=== PATIENT | female | born 1960 | race Caucasian/White ===

== ENCOUNTER 2021-05-07 17:11 | Emergency (ER) | payer OTHER ==
[2021-05-07 17:36] VITALS: TEMP 97.8; BMI 36.0
[2021-05-07] MEDS ORDERED: morphine CARPU-JECT 4 MG/1 ML DISP.SYRIN IVPUSH ONE (18:57)
[2021-05-07] MEDS ORDERED: morphine SULFATE 4 MG/ML VIAL ONE (19:23)
[2021-05-07 19:46] LABS: BASO % 0.5 % (0-2.0); EOS % 0.7 % (0-4.5); HEMATOCRIT 37.5 % (32.4-45.2); HEMOGLOBIN 12.6 GM/dL (10.7-15.3); LYMPH % 24.9 % (8-40); MCH 29.9 pg (25.7-33.7); MCHC 33.7 g/dl (32.0-36.0); MEAN CELL VOLUME 88.7 fl (80-96); MEAN PLT VOLUME 8.2 fl (7.5-11.1); MONO % 9.1 % (3.8-10.2); NEUT % 64.8 % (42.8-82.8); PLATELET COUNT 343 10^3/uL (134-434); RBC 4.23 M/mm3 (3.60-5.2); RDW 13.7 % (11.6-15.6); WHITE BLOOD COUNT 10.2 K/mm3 (4.0-10.0)
[2021-05-07 20:05] LABS: ALBUMIN 3.5 g/dl (3.4-5.0); CALCIUM 9.1 mg/dL (8.5-10.1)
[2021-05-07 20:06] LABS: BLOOD UREA NITROGEN 17.2 mg/dL (7-18)
[2021-05-07 20:08] LABS: CREATININE 0.9 mg/dL (0.55-1.3)
[2021-05-07 20:10] LABS: BILIRUBIN,TOTAL 1.4 mg/dL (0.2-1)
[2021-05-07 20:32] LABS: EPI CELLS 18 /uL (0-25.1); HYALINE CASTS 0 /uL (0-3.1); URINE APPEARANCE TURBID; URINE BACTERIA >9,000 /uL (0-1359); URINE BILIRUBIN NEGATIVE (NEGATIVE); URINE COLOR YELLOW; URINE GLUCOSE (UA) NEGATIVE (NEGATIVE); URINE KETONE TRACE (NEGATIVE); URINE LEUK ESTERASE 3+ (NEGATIVE); URINE NITRITE POSITIVE (NEGATIVE); URINE PROTEIN TRACE (NEGATIVE); URINE RBC 26 /uL (0-23.9); URINE WBC 1610 /uL (0-25.8)
[2021-05-07 22:31] VITALS: BP 138/66; PULSE 76
== END 2021-05-07 22:32 | disposition home or self-care (01) ==
LOC: JER 17:11
PROC: 3E033NZ Introduction of Analgesics, Hypnotics, Sedatives into Peripheral Vein, Percutaneous Approach (ICD-10-PCS; principal; 2021-05-07)
DX: N39.0 Urinary tract infection, site not specified (principal)
CPT/HCPCS: 36415; 80053; 81003; 85025; 87086; 87186; 99284-25

== ENCOUNTER 2023-05-19 15:30 | Inpatient (IN) | payer OTHER ==
[2023-05-19] MEDS ORDERED: MAG HYDROX/AL HYDROX/SIMETH 30 ML UNIT-DOSE CUP PO ONE (16:54)
[2023-05-19] MEDS ORDERED: FAMOTIDINE 20 MG/50 ML IVPB 20 MG/50 ML MG IVPB ONE (16:54)
[2023-05-19] MEDS ORDERED: ONDANSETRON 4 MG/2 ML VIAL IVPUSH ONE (16:54)
[2023-05-19] MEDS ORDERED: MAG HYDROX/AL HYDROX/SIMETH 30 ML UNIT-DOSE CUP ONE (17:33)
[2023-05-19] MEDS ORDERED: FAMOTIDINE 10 MG/ML VIAL IVPB ONE (17:34)
[2023-05-19] MEDS ORDERED: ONDANSETRON 4 MG/2 ML VIAL ONE (17:34)
[2023-05-19 17:50] LABS: BASO % 0.5 % (0-2.0); EOS % 0.6 % (0-4.5); HEMATOCRIT 37.5 % (32.4-45.2); HEMOGLOBIN 12.7 GM/dL (10.7-15.3); LYMPH % 22.5 % (8-40); MCH 29.3 pg (25.7-33.7); MCHC 33.8 g/dl (32.0-36.0); MEAN CELL VOLUME 86.6 fl (80-96); MEAN PLT VOLUME 7.8 fl (7.5-11.1); MONO % 16.1 % (3.8-10.2); NEUT % 60.3 % (42.8-82.8); PLATELET COUNT 382 10^3/uL (134-434); RBC 4.33 M/mm3 (3.60-5.2); RDW 14.5 % (11.6-15.6); WHITE BLOOD COUNT 11.2 K/mm3 (4.0-10.0)
[2023-05-19 17:57] LABS: INR 1.19 (0.83-1.09); PROTHROMBIN TIME (PATIENT) 13.8 SEC (9.7-13.0)
[2023-05-19 17:59] LABS: ACTIVATED PTT 26.3 SECONDS (25.2-36.5)
[2023-05-19 18:08] LABS: POTASSIUM 3.4 mmol/L (3.5-5.1)
[2023-05-19 18:10] LABS: CALCIUM 8.9 mg/dL (8.5-10.1)
[2023-05-19 18:11] LABS: ALBUMIN 3.3 g/dl (3.4-5.0); BLOOD UREA NITROGEN 22.3 mg/dL (7-18)
[2023-05-19 18:13] LABS: CREATININE 1.3 mg/dL (0.55-1.3)
[2023-05-19 18:15] LABS: BILIRUBIN,TOTAL 0.4 mg/dL (0.2-1); TOT PROT 7.8 g/dl (6.4-8.2)
[2023-05-19 18:37] LABS: EPI CELLS 11 /uL (0-25.1); HYALINE CASTS 1 /uL (0-3.1); URINE APPEARANCE CLEAR; URINE BACTERIA >9,000 /uL (0-1359); URINE BILIRUBIN NEGATIVE (NEGATIVE); URINE COLOR YELLOW; URINE GLUCOSE (UA) NEGATIVE (NEGATIVE); URINE KETONE 1+ (NEGATIVE); URINE LEUK ESTERASE 2+ (NEGATIVE); URINE NITRITE POSITIVE (NEGATIVE); URINE PROTEIN 1+ (NEGATIVE); URINE RBC 29 /uL (0-23.9); URINE WBC 452 /uL (0-25.8)
[2023-05-19] MEDS ORDERED: ACETAMINOPHEN 1000 MG/100 ML BAG IVPB ONE (21:25)
[2023-05-19] MEDS ORDERED: ACETAMINOPHEN INJECTION 100 ML IVPB ONE (21:34)
[2023-05-19] MEDS ORDERED: CEFTRIAXONE 1,000 MG in DEXTROSE 5%-WATER - 50 ML IVPB ONE (22:20)
[2023-05-19] MEDS ORDERED: CEFTRIAXONE 1 GM/50 ML BAG ONE (22:33)
[2023-05-20] MEDS ORDERED: PIPERACILLIN/TAZOB 3.375 GM 3.375 GM in DEXTROSE 5%-WATER - 50 ML IVPB ONE (00:39)
[2023-05-20] MEDS ORDERED: PIPERACILLIN/TAZOB 3.375 GM 3.375 GM/50 ML BAG IVPB ONE (01:21)
[2023-05-20] MEDS ORDERED: PIPERACILLIN/TAZOB 3.375 GM 3.375 GM in DEXTROSE 5%-WATER - 50 ML IVPB SCH ×4 (02:45→18:00)
[2023-05-20] MEDS ORDERED: POTASSIUM CHLORIDE ORAL LIQUID 20 MEQ/15 ML PO ONE (02:52)
[2023-05-20] MEDS ORDERED: ACETAMINOPHEN 325 MG TABLET (FP) PO ONE (03:56)
[2023-05-20 05:23] VITALS: BMI 34.4
[2023-05-20] MEDS ORDERED: SODIUM CHLORIDE 1,000 ML IV SCH (08:00)
[2023-05-20] MEDS ORDERED: ENOXAPARIN NA (PORCINE) 40 MG/0.4 ML DISP.SYRIN SQ SCH (10:00)
[2023-05-20] MEDS ORDERED: BUPIVACAINE HCL/PF 0.5% (5MG/ML) 10 ML VIAL ONE (10:24)
[2023-05-20] MEDS ORDERED: PROPOFOL 40 ML ONE (11:12)
[2023-05-20] MEDS ORDERED: LIDOCAINE HCL/PF 2% SDV 5ML VIAL ONE (11:13)
[2023-05-20] MEDS ORDERED: DEXAMETHASONE SOD PHOSPHATE 4 MG/1 ML VIAL ONE (11:13)
[2023-05-20] MEDS ORDERED: SUGAMMADEX SODIUM 200 MG/2 ML VIAL ONE (11:13)
[2023-05-20] MEDS ORDERED: MIDAZOLAM HCL 2 MG/2 ML SINGLE DOSE VIAL ONE (11:13)
[2023-05-20] MEDS ORDERED: ONDANSETRON 4 MG/2 ML VIAL ONE (11:13)
[2023-05-20 11:14] LABS: INR 1.16 (0.83-1.09); PROTHROMBIN TIME (PATIENT) 13.4 SEC (9.7-13.0)
[2023-05-20] MEDS ORDERED: ROCURONIUM BROMIDE 50 MG/5 ML SYRINGE ONE (11:14)
[2023-05-20 11:16] LABS: HEMATOCRIT 35.8 % (32.4-45.2); HEMOGLOBIN 11.7 GM/dL (10.7-15.3); MCHC 32.7 g/dl (32.0-36.0); MEAN CELL VOLUME 88.8 fl (80-96); MEAN PLT VOLUME 8.2 fl (7.5-11.1); PLATELET COUNT 348 10^3/uL (134-434); RBC 4.03 M/mm3 (3.60-5.2); RDW 14.2 % (11.6-15.6); WHITE BLOOD COUNT 7.4 K/mm3 (4.0-10.0)
[2023-05-20 11:17] LABS: ACTIVATED PTT 24.2 SECONDS (25.2-36.5)
[2023-05-20 11:37] LABS: POTASSIUM 4.2 mmol/L (3.5-5.1)
[2023-05-20] MEDS ORDERED: BUPIVACAINE HCL/PF 0.5% (5MG/ML) 10 ML VIAL NR ONE (11:46)
[2023-05-20 11:54] LABS: BLOOD UREA NITROGEN 19.8 mg/dL (7-18); CALCIUM 8.9 mg/dL (8.5-10.1); MAGNESIUM 2.7 mg/dL (1.8-2.4); TOT PROT 7.2 g/dl (6.4-8.2)
[2023-05-20 11:56] LABS: CREATININE 1.1 mg/dL (0.55-1.3); PHOSPHOROUS 3.9 mg/dL (2.5-4.9)
[2023-05-20 12:00] LABS: BILIRUBIN,TOTAL 0.3 mg/dL (0.2-1)
[2023-05-20] MEDS ORDERED: ONDANSETRON 4 MG/2 ML VIAL IVPUSH PRN ×2 (12:50→13:03)
[2023-05-20] MEDS ORDERED: LACTATED RINGERS SOLUTION 1,000 ML IV SCH (13:00)
[2023-05-20] MEDS ORDERED: ACETAMINOPHEN 500 MG TABLET (FP) PO PRN (13:03)
[2023-05-20] MEDS ORDERED: IBUPROFEN 600 MG TABLET (FP) PO PRN (13:03)
[2023-05-20] MEDS: oxyCODONE HCL 5 MG TABLET PO PRN (14:52)
[2023-05-20] MEDS: SODIUM CHLORIDE 1,000 ML IV SCH (14:56)
[2023-05-21] MEDS: SODIUM CHLORIDE 1,000 ML IV SCH (00:54)
[2023-05-21] MEDS: oxyCODONE HCL 5 MG TABLET PO PRN ×2 (05:24→23:54)
[2023-05-21 09:23] LABS: BASO % 0.3 % (0-2.0); EOS % 0.3 % (0-4.5); HEMATOCRIT 31.8 % (32.4-45.2); HEMOGLOBIN 10.6 GM/dL (10.7-15.3); LYMPH % 14.9 % (8-40); MCH 29.5 pg (25.7-33.7); MCHC 33.2 g/dl (32.0-36.0); MEAN CELL VOLUME 88.8 fl (80-96); MEAN PLT VOLUME 8.2 fl (7.5-11.1); MONO % 7.6 % (3.8-10.2); NEUT % 76.9 % (42.8-82.8); PLATELET COUNT 332 10^3/uL (134-434); RBC 3.58 M/mm3 (3.60-5.2); RDW 14.2 % (11.6-15.6); WHITE BLOOD COUNT 11.6 K/mm3 (4.0-10.0)
[2023-05-21 09:40] LABS: POTASSIUM 3.6 mmol/L (3.5-5.1)
[2023-05-21 09:43] LABS: CALCIUM 8.2 mg/dL (8.5-10.1)
[2023-05-21 09:44] LABS: ALBUMIN 2.7 g/dl (3.4-5.0); MAGNESIUM 2.1 mg/dL (1.8-2.4)
[2023-05-21 09:47] LABS: CREATININE 0.8 mg/dL (0.55-1.3)
[2023-05-21 09:49] LABS: BILIRUBIN,TOTAL 0.9 mg/dL (0.2-1); TOT PROT 6.6 g/dl (6.4-8.2)
[2023-05-21] MEDS ORDERED: CEFTRIAXONE 1 GM in DEXTROSE 5%-WATER - 50 ML IVPB SCH (10:00)
[2023-05-21] MEDS: ENOXAPARIN NA (PORCINE) 40 MG/0.4 ML DISP.SYRIN SQ SCH (10:31)
[2023-05-21] MEDS: ERTAPENEM SODIUM 1 GM in SODIUM CHLORIDE 50 ML IVPB SCH (17:37)
[2023-05-22] MEDS: ENOXAPARIN NA (PORCINE) 40 MG/0.4 ML DISP.SYRIN SQ SCH (10:14)
[2023-05-22] MEDS: ERTAPENEM SODIUM 1 GM in SODIUM CHLORIDE 50 ML IVPB SCH (11:13)
[2023-05-22] MEDS: oxyCODONE HCL 5 MG TABLET PO PRN (20:49)
[2023-05-23 09:22] LABS: MCH 29.6 pg (25.7-33.7); MCHC 33.4 g/dl (32.0-36.0); MEAN CELL VOLUME 88.6 fl (80-96); MEAN PLT VOLUME 8.1 fl (7.5-11.1); PLATELET COUNT 445 10^3/uL (134-434); RBC 4.06 M/mm3 (3.60-5.2); RDW 13.9 % (11.6-15.6)
[2023-05-23 09:45] LABS: POTASSIUM 3.8 mmol/L (3.5-5.1)
[2023-05-23 09:52] LABS: CALCIUM 8.7 mg/dL (8.5-10.1)
[2023-05-23 09:53] LABS: ALBUMIN 2.9 g/dl (3.4-5.0); BLOOD UREA NITROGEN 9.1 mg/dL (7-18)
[2023-05-23 09:54] LABS: BILIRUBIN,TOTAL 0.5 mg/dL (0.2-1)
[2023-05-23 09:56] LABS: CREATININE 0.9 mg/dL (0.55-1.3)
[2023-05-23 09:57] LABS: TOT PROT 7.4 g/dl (6.4-8.2)
[2023-05-23] MEDS: ENOXAPARIN NA (PORCINE) 40 MG/0.4 ML DISP.SYRIN SQ SCH (10:23)
[2023-05-23] MEDS: ERTAPENEM SODIUM 1 GM in SODIUM CHLORIDE 50 ML IVPB SCH (10:23)
[2023-05-23 15:02] VITALS: BP 140/85; PULSE 65; RESP 16; TEMP 98.5
== END 2023-05-23 16:00 | disposition home or self-care (01) | DRG 263 ==
LOC: JER 15:30 → JERBED 05-20 00:41 → J8W 05-20 05:00
PROVIDERS: ADMIT Internal Medicine; ATTEND Nurse Practitioner Acute Care
PROC: 0FT44ZZ Resection of Gallbladder, Percutaneous Endoscopic Approach (ICD-10-PCS; principal; 2023-05-20 11:00)
DX: K80.01 Calculus of gallbladder with acute cholecystitis with obstruction (principal); I24.8 Other forms of acute ischemic heart disease; I10 Essential (primary) hypertension; R73.03 Prediabetes; N17.9 Acute kidney failure, unspecified; E87.6 Hypokalemia; N39.0 Urinary tract infection, site not specified; B96.20 Unspecified Escherichia coli [E. coli] as the cause of diseases classified elsewhere; E66.9 Obesity, unspecified; Z68.34 Body mass index [BMI] 34.0-34.9, adult
CPT/HCPCS: 36415; 71046-TC-FY; 74177-TC; 76705-TC; 80053; 81003; 83036; 83690; 83735; 84100; 84484; 85025; 85027; 85610; 85730; 87086; 87186; 88304-TC; 93005; 93010; 94010; 94760; 99285-25; Q9967

== ENCOUNTER 2023-05-24 12:31 | Day surgery (SDC) | payer OTHER ==
[2023-05-24] MEDS ORDERED: ERTAPENEM SODIUM 1 GM in SODIUM CHLORIDE 50 ML IVPB ONE (13:00)
[2023-05-24 14:20] VITALS: BP 122/82; PULSE 66; RESP 17; TEMP 97.8
== END 2023-05-24 14:18 | disposition home or self-care (01) ==
LOC: FINFUSION 12:31 → FM/S 12:34 → FINFUSION 14:18
PROVIDERS: ATTEND Internal Medicine Infectious Disease
DX: N39.0 Urinary tract infection, site not specified (principal)
CPT/HCPCS: 96365

== ENCOUNTER 2023-05-25 12:31 | Day surgery (SDC) | payer OTHER ==
[2023-05-25] MEDS ORDERED: ERTAPENEM SODIUM 1 GM in SODIUM CHLORIDE 50 ML IVPB ONE (13:00)
[2023-05-25 15:25] VITALS: BP 114/70; PULSE 74; RESP 16; TEMP 97.7
== END 2023-05-25 15:33 | disposition home or self-care (01) ==
LOC: FINFUSION 12:31 → FM/S 12:31 → FINFUSION 15:33
PROVIDERS: ATTEND Internal Medicine Infectious Disease
DX: N39.0 Urinary tract infection, site not specified (principal)
CPT/HCPCS: 96365

== ENCOUNTER 2023-05-26 10:39 | Day surgery (SDC) | payer OTHER ==
[2023-05-26] MEDS ORDERED: ERTAPENEM SODIUM 1 GM in SODIUM CHLORIDE 50 ML IVPB ONE (11:15)
[2023-05-26 12:38] VITALS: BP 130/72; PULSE 62; RESP 18; TEMP 98
== END 2023-05-26 12:38 | disposition home or self-care (01) ==
LOC: FINFUSION 10:39 → FM/S 10:40 → FINFUSION 12:38
PROVIDERS: ATTEND Internal Medicine Infectious Disease
DX: N39.0 Urinary tract infection, site not specified (principal)
CPT/HCPCS: 96365

== ENCOUNTER 2023-05-27 11:30 | Day surgery (SDC) | payer OTHER ==
[2023-05-27] MEDS ORDERED: ERTAPENEM SODIUM 1 GM in SODIUM CHLORIDE 50 ML IVPB ONE (11:45)
[2023-05-27 12:08] VITALS: TEMP 98.3
[2023-05-27 13:13] VITALS: BP 132/80; PULSE 86; RESP 16
== END 2023-05-27 13:13 | disposition home or self-care (01) ==
LOC: FM/S 11:30 → FINFUSION 11:30
PROVIDERS: ATTEND Internal Medicine Infectious Disease
DX: N39.0 Urinary tract infection, site not specified (principal)
CPT/HCPCS: 96365